=== PATIENT | male | born 1970 | race Two or more races ===

== ENCOUNTER → 2017-01-15 | Outpatient (CLI) | payer OTHER ==
[~2017-01-15] MED LIST: BUSP15TA OR; COLA50CA; HYDR-727 PO; LISI20TA5 OR; MIDRCAP PO; NORTRIPTYLINE PO; OMEP20TA7 OR; OXYC40TA19 OR; OXYCON; OXYCONTIN PO; PERC5TAB8; PRAV40TA; PRAVAS; PRAVASTATIN PO; SOMA PO; SOMA350T OR; TOPR100T; TRAZ50TA OR; [UNRECOGNIZED DRUG - OTHER]; [UNRECOGNIZED DRUG - OTHER]; [UNRECOGNIZED DRUG - OTHER]; [UNRECOGNIZED DRUG - OTHER] PO
--- NOTE | 2017-02-03 01:07 | ECWPNPC ---
PATIENT NAME: HARPAL SIFUENTES : 1970 GENDER: MALE VISIT DATE: 01/15/2017 DISCHARGE DATE: 01/15/17 1513 VISIT LOCKED DATE TIME: PHYSICIAN: ETHAN LUKE RESOURCE: ETHAN LUKE REASON FOR APPOINTMENT 1. W/C LOW BACK HISTORY OF PRESENT ILLNESS NEW PATIENT CONSULT: WHEN DID YOUR PAIN FIRST START? . BRIEFLY DESCRIBE HOW YOUR PAIN STARTED? . HOW DOES YOUR PAIN CHANGE WITH TIME? . DOES YOUR PAIN AWAKEN YOU FROM SLEEP? . HOW MANY HOURS OF SLEEP DO YOU NORMALLY GET? . ANY DIAGNOSTIC TESTING? . FACILITY WHERE TESTS WERE DONE? ____. PAIN TREATMENT TREATMENT YES CANCER HAVE YOU EVER HAD ANY TYPE OF CANCER?NO NO. 46 YEAR OLD MALE PATIENT WITH HISTORY OF CHRONIC LOW BACK PAIN. PATIENT DESCRIBES THE PAIN SHARP, STABBING, TENDER, THROBBING, SORE AND HAVING IT ALL THE TIME WITH A PAIN SCORE OF 7/10. 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 PATIENT RECEIVED TWO BACK SURGERIES IN 2007 AND 2008 AND REPORTS THEM NOT AIDING IN PAIN RELIEF OR MOBILITY AND FUNCTIONALITY. PATIENT REPORTS PHYSICAL THERAPY MAKING THE PAIN WORSE. CURRENTLY THE PATIENT IS USING PERCOCET, OXYCONTIN AND FLEXERIL NEEDED. PATIENT REPORTS CYMBALTA NOT AIDING IN PAIN RELIEF,. LYRICA GAVE HIM A RASH AND HIVES, AND GABAPENTIN MADE HIS FACE "FREEZE UP". PATIENT REPORTS HAVING PAIN RADIATING DOWN BOTH LEGS TO HIS FEET. ANY TYPE OF ACTIVITY INCLUDING STANDING, WALKING, AND SITTING INCREASE THE PAIN IN HIS LOWER BACK. PATIENT DENIES UNEXPLAINABLE WEIGHT LOSS, FEVER, CHILLS, NEW CHANGES ON HIS URINARY OR BOWEL CONTROL. PAIN SCREENING: PATIENT HAS A COMPLAINT OF ACUTE OR CHRONIC PAIN :YES FALL RISK SCREENING: SCREENING :NO FALLS IN THE PAST YEAR CAMPBELL INVENTORY: QUESTIONNAIRE ASSESSEDTBD SCORE VALUE CALCULATED TBD CURRENT MEDICATIONS TAKING CYCLOBENZAPRINE HCL 10 MG TABLET 1 TABLET NEEDED ORALLY ONCE DAILY NEEDED TAKING CLONAZEPAM 1 MG TABLET 1 TABLET ORALLY TWICE A DAY TAKING OXYCODONE HCL ER 40 MG TABLET ER 12 HOUR ABUSE-DETERRENT 1 TABLET ORALLY EVERY 12 HRS TAKING LOSARTAN POTASSIUM 50 MG TABLET 1 TABLET ORALLY ONCE A DAY TAKING MONTELUKAST SODIUM 10 MG TABLET 1 TABLET IN THE EVENING ORALLY ONCE A DAY TAKING PERCOCET 5-325 MG TABLET 2 ORALLY EVERY 4 HOURS NEEDED MEDICATION LIST REVIEWED AND RECONCILED WITH THE PATIENT PAST MEDICAL HISTORY HYPERCHOLESTEROLEMIA HTN ANXIETY/ DEPRESSION LOW BACK PAIN ALLERGIES LYRICA SURGICAL HISTORY BACK SURGERY 08/27 KNEE 2003 BRAIN CANCER 10/2011 BACK SURGERY 09/28 FAMILY HISTORY MOTHER: DIAGNOSED WITH CANCER SOCIAL HISTORY GENERAL: TOBACCO USE ARE YOU A:CURRENT SMOKER PATIENT COUNSELED ON THE DANGERS OF TOBACCO USE AND URGED TO QUIT:01/15/2017 ARE YOU INTERESTED IN QUITTING?READY TO QUIT COUNSELED THE PATIENT ON TOBACCO USE, CESSATION [id number]/2017 CAFFEINE CAFFEINE USE?YES HOW OFTEN AND HOW MUCH? 5-6 CUPS PER DAY OCCUPATION: RETIRED. DIET: NO CONCENTRATED SWEETS.. EXERCISE: WALKS. MARITAL STATUS: . OTHERS AT HOME: CHILDREN, IN-LAW(S), OTHER NON-RELATIVE. CONFUCIANISM [id number] CONGREGATION LANGUAGE LANGUAGES SPOKEN:DJIBOUTIAN EDUCATION LEVEL OF EDUCATION:NOT FINISHED COLLEGE LEARNING BARRIERS / SPECIAL NEEDS BARRIERS TO LEARNING?NO HEARING IMPAIRED?NO VISION IMPAIRED?NO COGNITIVELY IMPAIRED?NO READINESS TO LEARN?NO LEARNING PREFERENCES?NO LEARNING CAPABILITIES PRESENT?NO MEDICATION ABUSE NO PSYCHOLOGICAL HX TREATMENTYES HOW OFTEN AND HOW MUCH? IN [facility]IN [facility]INIC PFS, CLERGY, PUBLIC HEALTH REFERRALS PFS REFERRAL NEEDED?NO CLERGY REFERRAL NEEDED?NO PUBLIC HEALTH REFERRAL NEEDED?NO WAS THE PROVIDER NOTIFIED OF ANY PERTINENT INFO?NO HAS THE PATIENT BEEN EDUCATED REGARDING HIS/HER PLAN OF CARE?YES HAS THE PATIENT BEEN EDUCATED REGARDING PAIN, THE RISK FOR PAIN, THE IMPORTANCE OF EFFECTIVE PAIN MANAGEMENT, AND THE PAIN ASSESSMENT PROCESS?YES PATIENT: ____. ADVANCE DIRECTIVES HEALTH CARE PROXY?NO WOULD YOU LIKE MORE INFORMATION?NO DO YOU HAVE A DNR?NO WOULD YOU LIKE MORE INFORMATION?NO LIVING WILL?NO WOULD YOU LIKE MORE INFORMATION?NO POWER OF LINEN KEEPER?NO RETIRED: YES. HOUSING: OWNS HOME. HOSPITALIZATION/MAJOR DIAGNOSTIC PROCEDURE BRAIN TUMOR REMOVAL 10/2011 BACK SURGERY 08/27 BACK SURGERY 09/28 REVIEW OF SYSTEMS REVIEWED BY: PROVIDER: ETHAN LUKE MD . CONSTITUTIONAL: ANY CHANGE IN YOUR MEDICAL CONDITION? NO . CHILLS NO . FEVER NO . INFECTION: DO YOU HAVE NEW INFECTIONS? NO . DO YOU HAVE HISTORY OF MRSA? NO . MUSCULOSKELETAL: ANY NEW PATTERNS OF PAIN OR NUMBNESS? NO . SYTEMIC LUPUS NO . GASTROENTEROLOGY: ANY NEW CHANGE IN BOWEL CONTROL? NO . BARRETTS ESOPHAGUS NO . CIRRHOSIS NO . HEPATITIS NO . LIVER FAILURE NO . ACID REFLUX YES . UNEXPLAINED WEIGHT LOSS NO . GENITOURINARY: ANY NEW CHANGE IN BLADDER CONTROL? NO . IS THERE A CHANCE YOU COULD BE ? NO . HEMATOLOGY/LYMPH: DO YOU TAKE ANY BLOOD THINNERS? (FOR EXAMPLE- COUMADIN, PLAVIX, AGGRENOX, PLATEL, PRADAXA, OR XARELTO) NO . WHEN WAS YOUR LAST DOSE? DATE: TIME: . LOW PLATELET COUNT NO . SICKLE CELL DISEASE NO . VON WILLIEBRANDS NO . FACTOR V LEIDEN NO . THALLASEMIA NO . ANEMIA NO . EASY BRUISING NO . NEUROLOGY: HAVE YOU FALLEN IN THE PAST 6 MONTHS? NO . ANY NEW EXTREMITY NUMBNESS OR WEAKNESS? NO . HEAD INJURY YES, HAD BRAIN CANCER 2011 . DEMENTIA NO . CEREBRAL PALSY NO . MULTIPLE SCLEROSIS NO . DIZZINESS NO . HEADACHE NO . STROKES NO . VERTIGO NO . CARDIOLOGY: DO YOU HAVE A PACEMAKER OR DEFIBRILLATOR? NO . ANGINA NO . HEART ATTACK NO . HEART SURGERY NO . CONGESTIVE HEART FAILURE/FLUID OVERLOAD NO . CHEST PAIN NO . HIGH BLOOD PRESSURE NO . IRREGULAR HEART BEAT NO . RESPIRATORY: HAVE YOU BEEN SICK IN THE PAST WEEK? NO . FEVER NO . FLU LIKE SYMPTOMS? NO . CPAP NO . BYPAP NO . ASTHMA NO . EMPHYSEMA NO . CHRONIC LUNG DISEASES NO . SHORTNESS OF BREATH ON EXERTION NO . DO YOU USE ANY TYPE OF TOBACCO (SMOKE, SMOKELESS, CHEW)? YES . COUGH NO . SNORING YES . INTEGUMENTARY: DO YOU HAVE ANY RASHES OR OPEN SORES? NO . ALLERGIC/IMMUNO: ARE YOU ALLERGIC TO SHELLFISH OR IV DYE? NO . ANY NEW ALLERGIES? NO . PSYCHIATRIC: DO YOU HAVE THOUGHTS OF HURTING YOURSELF OR SOMEONE ELSE? NO . ARE YOU ABUSED, NEGLECTED, OR IN AN UNSAFE ENVIRONMENT? NO . ENDOCRINOLOGY: ARE YOU DIABETIC? NO . THYROID DISORDER NO . OTHER: DO YOU NEED ANY PRESCRIPTIONS? NO . IF YES, PLEASE LIST: ____ . ANY NEW PROBLEMS WITH YOUR MEDICATIONS? NO . WHEN DID YOU LAST EAT? ____ . WHEN DID YOU LAST DRINK? ____ . WHAT DID YOU LAST DRINK? ____ . NAME OF PERSON DRIVING YOU HOME? ____ . DO YOU HAVE ANY OTHER QUESTIONS OR CONCERNS NO . VITAL SIGNS WT 212.8 LBS, HT 71", BMI 29.68 INDEX, BP 122/88 MM HG, HR 86 /MIN, RR 16 /MIN, TEMP 97.4 F, OXYGEN SAT % 94%, NA INITIALS TL 1232, REVIEWED BY: VD. EXAMINATION : PATIENT IS ALERT O X 3 AND COOPERATIVE. TENDERNESS IN THE LOWER BACK AND PARASPINAL MUSCLE GROUP. PATIENT ABLE TO FLEX 15 DEGREES AND EXTEND 5 DEGREES WITH DIFFICULTIES. HYPERPATHIA AROUND SURGICAL SCARS. RIGHT LEG IS WEAKER THE LEFT AT EXTENSION AND FLEXION. MRI DONE ON 10/13/14 OF THE LUMBAR SPINE SHOWS DISC BULGES AT L1-L2 THROUGH L3-L4, SCAR TISSUE FROM SPINAL FUSION AT L5 AND HYPERTROPHY. ASSESSMENTS POSTLAMINECTOMY SYNDROME, NOT ELSEWHERE CLASSIFIED - M96.1 (PRIMARY) INTERVERTEBRAL DISC DISORDERS WITH RADICULOPATHY, LUMBAR REGION - M51.16 MYALGIA - M79.1 SPONDYLOSIS WITHOUT MYELOPATHY OR RADICULOPATHY, LUMBAR REGION - M47.816 SPONDYLOSIS WITHOUT MYELOPATHY OR RADICULOPATHY, LUMBOSACRAL REGION - M47.817 TREATMENT POSTLAMINECTOMY SYNDROME, NOT ELSEWHERE CLASSIFIED NOTES: WE DISCUSSED SEVERAL ISSUES WITH MR. SIFUENTES'S PAIN MANAGEMENT CASE. AT THIS TIME THE PATIENT WILL CONTINUE WITH THE SAME MEDICATION REGIME BEFORE. PATIENT IS USING CYCLOBENZAPRINE FOR THE MUSCLE SPASMS, OXYCONTIN AND PERCOCET FOR THE SOMATIC PAIN. I WOULD LIKE THE PATIENT TO START CYMBALTA BUT WAS ADVISED TO STOP THE MEDICATION IF HE HAS ANY ADVERSE SIDE EFFECTS. PATIENT DENIES ABUSE OF ANY MEDICATION, DENIES USE OF ILLEGAL SUBSTANCES, AND STATES HE IS ONLY USING THE MEDICATION FOR PAIN MANAGEMENT. AT THIS TIME THE PATIENT REPORTS HAVING INJECTIONS PRIOR TO THIS VISIT AND REPORTS NOT HAVING LONG LASTING RELIEF. MR. SIFUENTES EXPRESSED HE WOULD LIKE TO PROCEED WITH MEDICATION MANAGEMENT AND DOES NOT WANT INTERVENTIONS AT THIS TIME. WE DISCUSSED DCS AND THE PATIENT WAS GIVEN INFORMATION TO REVIEW. PATIENT WILL RETURN TO THE CLINIC IN 6 WEEKS. INSTRUCTIONS WERE GIVEN, QUESTIONS WERE ANSWERED, PATIENT REPORTS UNDERSTANDING AND AGREES WITH THE PLAN. I, PADDY ARMENTA, DOCUMENTED THE ABOVE INFORMATION ACTING A SCRIBE FOR DR. LUKE. I HAVE REVIEWED THE ABOVE DOCUMENT, WRITTEN BY PADDY DE LA PAZ AND I VERIFY THAT IT IS ACCURATE. DEAR DR. ZAPATA:THANK YOU FOR YOUR KIND REFERRAL OF MR. SIFUENTES. YOU WANT TO DISCUSS HER CASE WITH ME PLEASE CALL ME AT THE PAIN CENTER AT [phone]. SINCERELY,ETHAN LUKE, [facility]. OTHERS REFILL CYCLOBENZAPRINE HCL TABLET, 10 MG, 1 TABLET NEEDED, ORALLY, ONCE DAILY NEEDED MDD1, 30 DAY(S), 15, REFILLS 2 REFILL OXYCODONE HCL ER TABLET ER 12 HOUR ABUSE-DETERRENT, 40 MG, 1 TABLET, ORALLY FOR PAIN, EVERY 12 HRS MDD2, 30 DAY(S), 60, REFILLS 0 REFILL PERCOCET TABLET, 5-325 MG, 1, ORALLY, EVERY 6 HOURS NEEDED FOR PAIN MDD3, 30 DAY(S), 75, REFILLS 0 START CYMBALTA CAPSULE DELAYED RELEASE PARTICLES, 30 MG, 1 CAPSULE, ORALLY, TWICE A DAY FOR PAIN MDD2, 30 DAY(S), 60, REFILLS 2 PROCEDURES PN WORKMANS' COMP OPINION IN YOUR OPINION, WAS THE INCIDENT THAT THE PATIENT DESCRIBED THE COMPETENT MEDICAL CAUSE OF THIS INJURY/ILLNESS? YES ARE THE PATIENT'S COMPLAINTS CONSISTENT WITH HIS/HER HISTORY OF THE INJURY/ILLNESS? YES IS THE PATIENT'S HISTORY OF THE INJURY/ILLNESS CONSISTENT WITH YOUR OBJECTIVE FINDING? YES WHAT IS THE PERCENTAGE OF TEMPORARY IMPAIRMENT? MODERATE TO MARKED = 66.7% IS THE PATIENT WORKING? NO DOCTOR ON SITE: ETHAN PASTRANA MD PROCEDURE CODES FA211 ESTABILISHED PATIENT [facility] CHARGE G8427 DOC MEDS VERIFIED W/PT OR RE G8730 PAIN ASSESS POS TOOL F/U PLAN DOC DISPOSITION & COMMUNICATION FOLLOW UP 6 WEEKS ELECTRONICALLY SIGNED BY ETHAN LUKE MD ON 02/02/2017 AT 08:12 PM EDT DISCLAIMER : THIS IS A VISIT SUMMARY EXTRACTED FROM THE [email or web address] CHART. IT IS NOT A COPY OF THE [email or web address] PROGRESS NOTE. MTDD
== END ==
LOC: M PAIN 12:30
PROVIDERS: ATTEND Anesthesiology
DX: M96.1 Postlaminectomy syndrome, not elsewhere classified (principal); M51.16 Intervertebral disc disorders with radiculopathy, lumbar region; M47.816 Spondylosis without myelopathy or radiculopathy, lumbar region; M47.817 Spondylosis without myelopathy or radiculopathy, lumbosacral region; M79.1 Myalgia; E78.00 Pure hypercholesterolemia, unspecified; I10 Essential (primary) hypertension; F41.9 Anxiety disorder, unspecified; F32.9 Major depressive disorder, single episode, unspecified; F17.200 Nicotine dependence, unspecified, uncomplicated; Z88.8 Allergy status to other drugs, medicaments and biological substances; Z79.899 Other long term (current) drug therapy

== ENCOUNTER → 2017-01-22 | Outpatient (CLI) | payer MEDICARE, BC, OTHER ==
--- NOTE | 2017-01-22 11:03 | REP ---
MR BRAIN WITHOUT AND WITH CONTRAST: HISTORY: Oligodendroglioma CONTRAST: ProHance 19 mL. 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 Cystic encephalomalacia is present in the left frontal lobe. Increased signal intensity on T2-weighted images is present in the white matter of the frontal and parietal lobes, greater in the left than on the right. This represents post chemo or radiation change. A small amount of curvilinear enhancing granulation tissue is present in the left frontal lobe unchanged compared to previous studies. There is no intraparenchymal hemorrhage, infarct, or midline shift. The ventricular system and cortical sulci are dilated consistent with minimal volume loss. There is no extracerebral collection. The sinuses are clear. IMPRESSION: There are postoperative changes in the left frontal lobe. There is no recurrent tumor. Signed by Chuck Guallpa MD 01/22/2017 11:06 A
== END ==
LOC: M RAD 09:28
PROVIDERS: ATTEND Neurological Surgery
DX: C71.9 Malignant neoplasm of brain, unspecified (principal)
CPT/HCPCS: 70553; A9576

== ENCOUNTER → 2017-03-06 | Outpatient (CLI) | payer OTHER ==
--- NOTE | 2017-03-14 23:45 | ECWPNPC ---
PATIENT NAME: HARPAL SIFUENTES : 1970 GENDER: MALE VISIT DATE: 03/06/2017 DISCHARGE DATE: 03/06/17 1700 VISIT LOCKED DATE TIME: PHYSICIAN: ETHAN LUKE RESOURCE: ETHAN LUKE REASON FOR APPOINTMENT 1. LOW BACK W/C HISTORY OF PRESENT ILLNESS HISTORY OF PRESENT ILLNESS: PAIN THE PATIENT DESCRIBES THE PAIN... 46 YEAR OLD MALE PATIENT WITH HISTORY OF CHRONIC LOW BACK PAIN. PATIENT DESCRIBES THE PAIN SHARP, STABBING, TENDER, THROBBING, SORE AND HAVING IT ALL THE TIME WITH A PAIN SCORE OF 7/10. 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 PATIENT RECEIVED TWO BACK SURGERIES IN 2007 AND 2008 AND REPORTS THEM NOT AIDING IN PAIN RELIEF OR MOBILITY AND FUNCTIONALITY. PATIENT REPORTS PHYSICAL THERAPY MAKING THE PAIN WORSE. CURRENTLY THE PATIENT IS USING PERCOCET, OXYCONTIN AND FLEXERIL NEEDED. PATIENT STATES THE MEDICATION KEEPS HIM MOBILE AND FUNCTIONAL. PATIENT REPORTS HAVING PAIN RADIATING DOWN BOTH LEGS TO HIS FEET. ANY TYPE OF ACTIVITY INCLUDING STANDING, WALKING, AND SITTING INCREASE THE PAIN IN HIS LOWER BACK. PATIENT DENIES UNEXPLAINABLE WEIGHT LOSS, FEVER, CHILLS, NEW CHANGES ON HIS URINARY OR BOWEL CONTROL. FALL RISK SCREENING: SCREENING :NO FALLS IN THE PAST YEAR CURRENT MEDICATIONS TAKING CLONAZEPAM 1 MG TABLET 1 TABLET ORALLY TWICE A DAY TAKING LOSARTAN POTASSIUM 50 MG TABLET 1 TABLET ORALLY ONCE A DAY TAKING MONTELUKAST SODIUM 10 MG TABLET 1 TABLET IN THE EVENING ORALLY ONCE A DAY TAKING CYCLOBENZAPRINE HCL 10 MG TABLET 1 TABLET NEEDED ORALLY ONCE DAILY NEEDED MDD1 TAKING OXYCODONE HCL ER 40 MG TABLET ER 12 HOUR ABUSE-DETERRENT 1 TABLET ORALLY FOR PAIN EVERY 12 HRS MDD2 TAKING PERCOCET 5-325 MG TABLET 1 ORALLY EVERY 6 HOURS NEEDED FOR PAIN MDD3 DISCONTINUED CYMBALTA 30 MG CAPSULE DELAYED RELEASE PARTICLES 1 CAPSULE ORALLY TWICE A DAY FOR PAIN MDD2 MEDICATION LIST REVIEWED AND RECONCILED WITH THE PATIENT PAST MEDICAL HISTORY HYPERCHOLESTEROLEMIA HTN ANXIETY/ DEPRESSION LOW BACK PAIN ALLERGIES LYRICA: SWELLING OF LYMPH NODES: ALLERGY REVIEW OF SYSTEMS REVIEWED BY: PROVIDER: ETHAN LUKE MD . CONSTITUTIONAL: ANY CHANGE IN YOUR MEDICAL CONDITION? NO . CHILLS NO . FEVER NO . INFECTION: DO YOU HAVE NEW INFECTIONS? NO . DO YOU HAVE HISTORY OF MRSA? NO . MUSCULOSKELETAL: ANY NEW PATTERNS OF PAIN OR NUMBNESS? NO . GASTROENTEROLOGY: ANY NEW CHANGE IN BOWEL CONTROL? NO . GENITOURINARY: ANY NEW CHANGE IN BLADDER CONTROL? NO . IS THERE A CHANCE YOU COULD BE ? NO . HEMATOLOGY/LYMPH: DO YOU TAKE ANY BLOOD THINNERS? (FOR EXAMPLE- COUMADIN, PLAVIX, AGGRENOX, PLATEL, PRADAXA, OR XARELTO) NO . WHEN WAS YOUR LAST DOSE? DATE: TIME: . NEUROLOGY: HAVE YOU FALLEN IN THE PAST 6 MONTHS? NO . ANY NEW EXTREMITY NUMBNESS OR WEAKNESS? NO . CARDIOLOGY: DO YOU HAVE A PACEMAKER OR DEFIBRILLATOR? NO . RESPIRATORY: HAVE YOU BEEN SICK IN THE PAST WEEK? NO . FEVER NO . FLU LIKE SYMPTOMS? NO . COUGH NO . INTEGUMENTARY: DO YOU HAVE ANY RASHES OR OPEN SORES? NO . ALLERGIC/IMMUNO: ARE YOU ALLERGIC TO SHELLFISH OR IV DYE? NO . ANY NEW ALLERGIES? NO . PSYCHIATRIC: DO YOU HAVE THOUGHTS OF HURTING YOURSELF OR SOMEONE ELSE? NO . ARE YOU ABUSED, NEGLECTED, OR IN AN UNSAFE ENVIRONMENT? NO . ENDOCRINOLOGY: ARE YOU DIABETIC? NO . OTHER: DO YOU NEED ANY PRESCRIPTIONS? YES . IF YES, PLEASE LIST: OXYCODONE . ANY NEW PROBLEMS WITH YOUR MEDICATIONS? NO . WHEN DID YOU LAST EAT? ____ . WHEN DID YOU LAST DRINK? ____ . WHAT DID YOU LAST DRINK? ____ . NAME OF PERSON DRIVING YOU HOME? ____ . DO YOU HAVE ANY OTHER QUESTIONS OR CONCERNS NO . VITAL SIGNS WT 180 LBS, HT 71", BMI 25.10 INDEX, BP 119/82 MM HG, HR 95 /MIN, RR 16 /MIN, TEMP 98.9 F, OXYGEN SAT % 94%, NA INITIALS SC 16:02, REVIEWED BY: JADIEL. EXAMINATION : PATIENT IS ALERT O X 3 AND COOPERATIVE. TENDERNESS IN THE LOWER BACK AND PARASPINAL MUSCLE GROUP. PATIENT ABLE TO FLEX 15 DEGREES AND EXTEND 5 DEGREES WITH DIFFICULTIES. HYPERPATHIA AROUND SURGICAL SCARS. RIGHT LEG IS WEAKER THE LEFT AT EXTENSION AND FLEXION. MRI DONE ON 10/13/14 OF THE LUMBAR SPINE SHOWS DISC BULGES AT L1-L2 THROUGH L3-L4, SCAR TISSUE FROM SPINAL FUSION AT L5 AND HYPERTROPHY. ASSESSMENTS POSTLAMINECTOMY SYNDROME, NOT ELSEWHERE CLASSIFIED - M96.1 (PRIMARY) INTERVERTEBRAL DISC DISORDER WITH RADICULOPATHY OF LUMBAR REGION - M51.16 SPONDYLOSIS OF LUMBAR REGION WITHOUT MYELOPATHY OR RADICULOPATHY - M47.816 SPONDYLOSIS OF LUMBOSACRAL REGION WITHOUT MYELOPATHY OR RADICULOPATHY - M47.817 TREATMENT POSTLAMINECTOMY SYNDROME, NOT ELSEWHERE CLASSIFIED NOTES: WE DISCUSSED SEVERAL ISSUES WITH MR. SIFUENTES'S PAIN MANAGEMENT CASE. AT THIS TIME THE PATIENT WILL CONTINUE WITH THE SAME MEDICATION REGIME BEFORE. PATIENT IS USING CYCLOBENZAPRINE FOR THE MUSCLE SPASMS, OXYCONTIN AND PERCOCET FOR THE SOMATIC PAIN. I WOULD LIKE THE PATIENT TO START CYMBALTA BUT WAS ADVISED TO STOP THE MEDICATION IF HE HAS ANY ADVERSE SIDE EFFECTS. PATIENT DENIES ABUSE OF ANY MEDICATION, DENIES USE OF ILLEGAL SUBSTANCES, AND STATES HE IS ONLY USING THE MEDICATION FOR PAIN MANAGEMENT. WE FURTHER DISCUSSED THE DCS AND THE PATIENT WOULD LIKE TO PROCEED. PATIENT IS AWARE HE WILL NEED A THORACIC MRI TO SEE IF THE LEADS WILL PASS THROUGH WELL A PSYCHOLOGICAL EVALUATION. ONCE THESE ARE REVIEWED AND THE PATIENT IS STILL A GOOD CANDIDATE I WOULD LIKE TO REQUEST AUTHORIZATION FOR THE TRIAL. PATIENT WILL RETURN TO THE CLINIC IN 3 WEEKS. INSTRUCTIONS WERE GIVEN, QUESTIONS WERE ANSWERED, PATIENT REPORTS UNDERSTANDING AND AGREES WITH THE PLAN. I, PADDY ARMENTA, DOCUMENTED THE ABOVE INFORMATION ACTING A SCRIBE FOR DR. LUKE. I HAVE REVIEWED THE ABOVE DOCUMENT, WRITTEN BY PADDY DE LA PAZ AND I VERIFY THAT IT IS ACCURATE. OTHERS REFILL OXYCODONE HCL ER TABLET ER 12 HOUR ABUSE-DETERRENT, 40 MG, 1 TABLET, ORALLY FOR PAIN, EVERY 12 HRS MDD2, 30 DAY(S), 60, REFILLS 0 REFILL PERCOCET TABLET, 5-325 MG, 1, ORALLY, EVERY 6 HOURS NEEDED FOR PAIN MDD3, 30 DAY(S), 75, REFILLS 0 REFILL CYCLOBENZAPRINE HCL TABLET, 10 MG, 1 TABLET NEEDED, ORALLY, ONCE DAILY NEEDED MDD1, 30 DAY(S), 15, REFILLS 2 PROCEDURES PN WORKMANS' COMP OPINION IN YOUR OPINION, WAS THE INCIDENT THAT THE PATIENT DESCRIBED THE COMPETENT MEDICAL CAUSE OF THIS INJURY/ILLNESS? YES ARE THE PATIENT'S COMPLAINTS CONSISTENT WITH HIS/HER HISTORY OF THE INJURY/ILLNESS? YES IS THE PATIENT'S HISTORY OF THE INJURY/ILLNESS CONSISTENT WITH YOUR OBJECTIVE FINDING? YES WHAT IS THE PERCENTAGE OF TEMPORARY IMPAIRMENT? MODERATE TO MARKED = 66.7% IS THE PATIENT WORKING? NO DOCTOR ON SITE: ETHAN PASTRANA MD PROCEDURE CODES FA211 ESTABILISHED PATIENT [facility] FAC[facility] CHARGE G8427 DOC MEDS VERIFIED W/PT OR RE G8730 PAIN ASSESS POS TOOL F/U PLAN DOC DISPOSITION & COMMUNICATION FOLLOW UP 3 WEEKS ELECTRONICALLY SIGNED BY ETHAN LUKE MD ON 03/13/2017 AT 04:14 PM EDT DISCLAIMER : THIS IS A VISIT SUMMARY EXTRACTED FROM THE [employer] CHART. IT IS NOT A COPY OF THE [employer] PROGRESS NOTE. [place]
== END ==
LOC: M PAIN 15:15
PROVIDERS: ATTEND Anesthesiology
DX: M96.1 Postlaminectomy syndrome, not elsewhere classified (principal); M51.16 Intervertebral disc disorders with radiculopathy, lumbar region; M47.816 Spondylosis without myelopathy or radiculopathy, lumbar region; M47.817 Spondylosis without myelopathy or radiculopathy, lumbosacral region; Z79.891 Long term (current) use of opiate analgesic; Z79.899 Other long term (current) drug therapy; Z88.8 Allergy status to other drugs, medicaments and biological substances

== ENCOUNTER → 2017-11-17 | Outpatient (CLI) | payer OTHER | LOC: M RAD 10:05 | DX: M79.1 Myalgia (principal); M47.26 Other spondylosis with radiculopathy, lumbar region; M47.817 Spondylosis without myelopathy or radiculopathy, lumbosacral region; M51.36 Other intervertebral disc degeneration, lumbar region; M51.37 Other intervertebral disc degeneration, lumbosacral region; M96.1 Postlaminectomy syndrome, not elsewhere classified | CPT/HCPCS: 72148 ==

== ENCOUNTER → 2018-01-29 | Outpatient (CLI) | payer MEDICARE, BC, OTHER ==
[~2018-01-29] MED LIST changes: -BUSP15TA OR; -COLA50CA; -HYDR-727 PO; -LISI20TA5 OR; -MIDRCAP PO; -NORTRIPTYLINE PO; -OMEP20TA7 OR; -OXYC40TA19 OR; -OXYCON; -OXYCONTIN PO; -PERC5TAB8; -PRAV40TA; -PRAVAS; -PRAVASTATIN PO; +PROHANCE 279.3MG/ML 15ML VIAL (A9576) As Ordered; +PROHANCE 279.3MG/ML 5ML VIAL (A9576) As Ordered; -SOMA PO; -SOMA350T OR; -TOPR100T; -TRAZ50TA OR; -[UNRECOGNIZED DRUG - OTHER]; -[UNRECOGNIZED DRUG - OTHER]; -[UNRECOGNIZED DRUG - OTHER]; -[UNRECOGNIZED DRUG - OTHER] PO
== END ==
LOC: M RAD 12:46
DX: C71.9 Malignant neoplasm of brain, unspecified (principal)
CPT/HCPCS: A9576

== ENCOUNTER → 2018-10-11 | Outpatient (CLI) | payer MEDICARE, BC, OTHER ==
[~2018-10-11] MED LIST changes: +BUSP15TA OR; +COLA50CA; +HYDR-727 PO; +LISI20TA5 OR; +METO-745; +MIDRCAP PO; +NORTRIPTYLINE PO; +OMEP20TA7 OR; +OXYC40TA19 OR; +OXYCON; +OXYCONTIN PO; +PERC5TAB8; +PRAV40TA; +PRAVAS; +PRAVASTATIN PO; -PROHANCE 279.3MG/ML 15ML VIAL (A9576) As Ordered; +PROHANCE 279.3MG/ML 15ML VIAL (A9576) As Ordered ONE; -PROHANCE 279.3MG/ML 5ML VIAL (A9576) As Ordered; +PROHANCE 279.3MG/ML 5ML VIAL (A9576) As Ordered ONE; +SOMA PO; +SOMA350T OR; +TRAZ50TA OR; +[UNRECOGNIZED DRUG - OTHER]; +[UNRECOGNIZED DRUG - OTHER]; +[UNRECOGNIZED DRUG - OTHER]; +[UNRECOGNIZED DRUG - OTHER] PO
--- NOTE | 2018-10-11 14:46 | REP ---
MR BRAIN WITH AND WITHOUT CONTRAST: HISTORY: Oligodendroglioma. CONTRAST: ProHance 17 mL. COMPARISON: 01/22/2017 and 01/29/2018. The patient is status post left frontal craniotomy. An area of encephalomalacia is present in the left frontal lobe. There is no intraparenchymal hemorrhage, infarct, mass or midline shift. There is no abnormal enhancement. Increased signal intensity on T2-weighted images is present in the periventricular and subcortical white matter of the frontal and parietal lobes. This represents chemo and/or post radiation change. The ventricular system and cortical sulci are dilated consistent with minimal volume loss. There is no extracerebral collection. The sinuses are clear. IMPRESSION: There are postoperative changes in the left frontal lobe. There is no recurrent tumor. Electronically Signed by Chuck Guallpa MD 10/11/2018 02:49 P
== END ==
LOC: M RAD 12:48
PROVIDERS: ATTEND Neurological Surgery
DX: C71.9 Malignant neoplasm of brain, unspecified (principal)
CPT/HCPCS: 70553; A9576

== ENCOUNTER → 2019-01-17 | Outpatient (CLI) | payer MEDICARE, BC, OTHER ==
[~2019-01-17] MED LIST changes: -PROHANCE 279.3MG/ML 5ML VIAL (A9576) As Ordered ONE
--- NOTE | 2019-01-18 08:57 | REP ---
MRI brain without and with IV contrast. History: History of oligodendroglioma status post biopsy and radiation therapy. Comparison is made with multiple prior brain and CT studies dating back to May 2010. Technique: Axial and sagittal imaging planes are utilized for T1 and T2-weighted scans. Sequences include spin-echo, fast spin echo, FLAIR, and diffusion weighted sequences. Gadolinium enhancement dose: 15 ml as of intravenous ProHance. MRI findings: The original study demonstrated an intra-axial lesion in the left inferior frontal lobe characterized by mild heterogeneous contrast enhancement, and partial punctate calcifications. A rashaad hole is again seen in the left frontal calvarium consistent with previous biopsy. There is some encephalomalacia in the frontal lobes again seen bilaterally. Residual cystic changes are noted in the left frontal lobe which are unchanged from multiple prior post-treatment studies. The largest cystic component in the left frontal lobe measures up to 3.1 cm in greatest diameter. There is periventricular and subcortical white matter hyperintensity in the frontal lobes bilaterally which may be post radiation change. This pattern is stable as well. Postcontrast images show no abnormal intracranial parenchymal enhancement. No new mass lesion is seen. Diffusion weighted scans show no evidence of restricted diffusion to suggest acute ischemia. Impression: Stable post-treatment changes. Electronically Signed by Dar Shannon MD 01/18/2019 10:00 A
== END ==
LOC: M RAD 16:58
PROVIDERS: ATTEND Neurological Surgery
DX: C71.9 Malignant neoplasm of brain, unspecified (principal)
CPT/HCPCS: 70553; A9576

== ENCOUNTER → 2019-08-05 | Outpatient (REF) | payer MEDICARE, OTHER ==
[~2019-08-05] MED LIST changes: -PROHANCE 279.3MG/ML 15ML VIAL (A9576) As Ordered ONE
[2019-08-05 12:20] LABS: INFLUENZA A AMPLIFICATION NEGATIVE (NEGATIVE); INFLUENZA B AMPLIFICATION NEGATIVE (NEGATIVE)
== END ==
LOC: M LAB REF 11:31
PROVIDERS: ATTEND Physician Assistant
DX: J11.1 Influenza due to unidentified influenza virus with other respiratory manifestations (principal)

== ENCOUNTER → 2020-02-15 | Outpatient (CLI) | payer MEDICARE, BC, OTHER ==
[~2020-02-15] MED LIST changes: +PROHANCE 279.3MG/ML 15ML VIAL As Ordered ONE; +PROHANCE 279.3MG/ML 5ML VIAL As Ordered ONE
--- NOTE | 2020-02-15 14:44 | REPVR ---
PROCEDURE INFORMATION: Exam: MR Head Without and With Contrast Exam date and time: 02/15/2020 1:40 PM Age: 49 years old Clinical indication: Condition or disease; Primary brain cancer; Prior surgery; Surgery date: 6+ months; Patient HX: Yearly f/u. History of oligodendroglioma status post resection and radiation therapy. TECHNIQUE: Imaging protocol: MR of the head without and with intravenous contrast. Contrast material: PROHANCE; Contrast volume: 16 ml; Contrast route: INTRAVENOUS (IV); COMPARISON: 1. MRI-Brain W/O FOLL BY WITH 01/17/2019 5:55 PM 2. MRI-Brain W/O FOLL BY WITH 01/29/2018 1:18:27 PM FINDINGS: Brain: Cystic encephalomalacia and a surgical resection cavity is again noted in the anterior left frontal lobe. Increased T2/FLAIR signal is present in the surrounding cerebral white matter. Increased T2 signal is also present in the left parietal white matter, left temporal white matter, right frontal white matter, and anterior corpus callosum. The findings are nonspecific, but likely related to radiation therapy. No enhancing lesions were identified after the administration of contrast. Several small cystic areas in the left frontoparietal white matter are unchanged. Several small cysts or dilated perivascular spaces are also noted in the left basal ganglia and left temporal lobe, similar to the prior exam. There is no acute intracranial hemorrhage, mass effect, or midline shift. No restricted diffusion is present to suggest acute infarction. Ventricles: No hydrocephalus. Bones/joints: An old left frontal craniotomy is present. Sinuses: Normal as visualized. No acute sinusitis. Mastoid air cells: Normal as visualized. No mastoid effusion. Orbits: Unremarkable. Soft tissues: Unremarkable. IMPRESSION: Stable postoperative and post treatment changes as discussed above. No recurrent enhancing tumor is identified. Electronically signed by: Guy Dumas On 02/15/2020 14:44:54 PM
== END ==
LOC: M RAD 11:32
PROVIDERS: ATTEND Neurological Surgery
DX: C71.9 Malignant neoplasm of brain, unspecified (principal); G93.89 Other specified disorders of brain
CPT/HCPCS: 70553; A9576

== ENCOUNTER → 2021-04-02 | Outpatient (CLI) | payer MEDICARE, BC, OTHER ==
--- NOTE | 2021-04-02 12:55 | REPVR ---
PROCEDURE INFORMATION: Exam: MR Head Without and With Contrast Exam date and time: 04/02/2021 12:16 PM Age: 50 years old Clinical indication: Other: Oligodendroglioma TECHNIQUE: Imaging protocol: MR of the head without and with intravenous contrast. Contrast material: PROHANCE; Contrast volume: 16 ml; Contrast route: INTRAVENOUS (IV); COMPARISON: MRI-Brain W/O FOLL BY WITH 02/15/2020 1:40 PM FINDINGS: Brain: As before, there is a left frontal lobe resection cavity. There is no associated enhancement. As before, there is T2/FLAIR hyperintensity within the high frontoparietal white matter and anterior corpus callosum, likely treatment related changes. Cystic appearing foci within the left centrum semiovale appear unchanged. Additional small cystic structures within the left inferior frontal and left temporal lobes appear unchanged as well. Cerebral ventricles: Normal. No ventriculomegaly. Bones/joints: There are left frontal craniotomy changes. Paranasal sinuses: Normal as visualized. No acute sinusitis. Mastoid air cells: Normal as visualized. No mastoid effusion. Orbital cavity: Unremarkable. Soft tissues: Unremarkable. IMPRESSION: Stable postoperative/post treatment changes. No new or progressive abnormality identified. Electronically signed by: Yvonne Hogue On 04/02/2021 12:54:53 PM
== END ==
LOC: M RAD 10:11
PROVIDERS: ATTEND Neurological Surgery
DX: C71.9 Malignant neoplasm of brain, unspecified (principal)
CPT/HCPCS: 70553; A9576

== ENCOUNTER → 2022-06-02 | Outpatient (CLI) | payer MEDICARE, BC, OTHER | LOC: M RAD 10:35 | PROVIDERS: ATTEND Neurological Surgery | DX: C71.9 Malignant neoplasm of brain, unspecified (principal) | CPT/HCPCS: 70553; A9576 ==

== ENCOUNTER → 2022-12-26 | Outpatient (CLI) | payer MEDICARE, BC, OTHER ==
[~2022-12-26] MED LIST changes: -PROHANCE 279.3MG/ML 15ML VIAL As Ordered ONE; +PROHANCE 279.3MG/ML 15ML VIAL ONE; -PROHANCE 279.3MG/ML 5ML VIAL As Ordered ONE; +PROHANCE 279.3MG/ML 5ML VIAL ONE
== END ==
LOC: M PLAIMG 09:15
PROVIDERS: ATTEND Neurological Surgery
DX: C71.9 Malignant neoplasm of brain, unspecified (principal)
CPT/HCPCS: 70553; A9576

== ENCOUNTER → 2023-09-24 | Outpatient (REF) ==
[~2023-09-24] MED LIST changes: -PROHANCE 279.3MG/ML 15ML VIAL ONE; -PROHANCE 279.3MG/ML 5ML VIAL ONE
== END ==
LOC: M RAD 09:40
PROVIDERS: ATTEND Internal Medicine
DX: R52 Pain, unspecified (principal)

== ENCOUNTER → 2024-01-29 | Outpatient (CLI) | payer MEDICARE, BC ==
[~2024-01-29] MED LIST changes: +PROHANCE 279.3MG/ML 15ML VIAL ONE; +PROHANCE 279.3MG/ML 5ML VIAL ONE
== END ==
LOC: M PLAIMG 13:14
PROVIDERS: ATTEND Neurological Surgery
DX: C71.9 Malignant neoplasm of brain, unspecified (principal)
CPT/HCPCS: 70553; A9576

== ENCOUNTER → 2025-01-06 | Outpatient (CLI) | payer MEDICARE, BC ==
[~2025-01-06] MED LIST changes: +PROHANCE 279.3MG/ML 15ML VIAL As Ordered ONE; -PROHANCE 279.3MG/ML 15ML VIAL ONE; +PROHANCE 279.3MG/ML 5ML VIAL As Ordered ONE; -PROHANCE 279.3MG/ML 5ML VIAL ONE
== END ==
LOC: M RAD 15:11
PROVIDERS: ATTEND Neurological Surgery
DX: C71.9 Malignant neoplasm of brain, unspecified (principal)
CPT/HCPCS: 70553; A9576